=== PATIENT | female | born 1930 | race African-American/Black ===

== ENCOUNTER 2018-06-03 13:36 | Inpatient (IN) | payer MEDICARE ==
[~2018-06-03] VITALS: Ht 165.1 cm; Wt 73.5 kg
[2018-06-03] MEDS ORDERED: MORPHINE SULFATE 4 MG/ML CPJ (NOT FOR IM USE) IV STA ×2 (14:33→18:03)
[2018-06-03] MEDS ORDERED: ONDANSETRON HCL 4MG/2ML INJ IV STA (14:33)
[2018-06-03 15:29] LABS: CLARITY URINE CLEAR (CLEAR); COLOR URINE YELLOW (YELLOW); KETONES URINE NEGATIVE (NEGATIVE); LEUKOCYTE ESTERASE URINE 1+ (NEGATIVE); NITRITE URINE NEGATIVE (NEGATIVE); OCCULT BLOOD URINE NEGATIVE (NEGATIVE); PROTEIN URINE NEGATIVE (NEGATIVE); SPECIFIC GRAVITY URINE 1.022 (1.005-1.030); UROBILINOGEN URINE 0.2 E.U./dL (0.2-1.0)
[2018-06-03 15:33] LABS: BASOPHILS % 0.5 % (0.0-2.0); EOSINOPHILS % 0.1 % (0.0-5.0); HEMATOCRIT. 43.3 % (36.0-48.0); HEMOGLOBIN. 13.8 g/dL (12.0-16.0); LYMPHOCYTES % 10.2 % (20.0-50.0); MEAN CORPUSCULAR HEMOGLOBIN 27.1 pg (28.0-32.0); MEAN CORPUSCULAR VOLUME 84.7 fL (81.0-99.0); MEAN PLATELET VOLUME 10.1 fl (7.4-10.4); MONOCYTES % 6.9 % (2.0-8.0); NEUTROPHILS % 82.3 % (40.0-76.0); PLATELET 236 x1000/uL (130-400); RED BLOOD CELL COUNT 5.11 mill/uL (4.2-5.4); RED CELL DISTRIBUTION WIDTH 17.3 % (11.6-14.6)
[2018-06-03 15:35] LABS: INR 1.1; PROTHROMBIN TIME 10.7 sec (9.1-11.1)
[2018-06-03 15:36] LABS: CHLORIDE 111 mEq/L (98-107)
[2018-06-03] MEDS ORDERED: IOHEXOL-300 100 ML BOTTLE ONE ×2 (16:28→19:55)
[2018-06-03] MEDS ORDERED: SODIUM CHLORIDE 0.9% 1,000 ML IV SCH (17:00)
[2018-06-03] MEDS ORDERED: CEFTRIAXONE 1 G PREMIX 50 ML IV SCH (17:00)
[2018-06-03] MEDS ORDERED: NA PHOS,M-B/NA PHOS,DI-BA ENEMA 118ML PR PRN (18:45)
[2018-06-03] MEDS ORDERED: CLONIDINE 0.1MG TABLET PO PRN (18:45)
[2018-06-03] MEDS ORDERED: ACETAMINOPHEN 325MG TABLET PO PRN (18:45)
[2018-06-03] MEDS ORDERED: GUAIFENESIN 200MG/10ML SUGAR FREE UDC PO PRN (18:45)
[2018-06-03] MEDS ORDERED: IPRATROPIUM/ALBUTEROL 0.5-3(2.5)MG/3ML NEB INH PRN (18:45)
[2018-06-03] MEDS ORDERED: MAGNESIUM/ALUMINUM HYDROXIDE/SIMETHICONE 30ML UDC PO PRN (18:45)
[2018-06-03] MEDS ORDERED: POTASSIUM CHLORIDE 20MEQ TABLET SR PO NR (18:45)
[2018-06-03] MEDS ORDERED: DOCUSATE SODIUM 100MG CAPSULE PO PRN (18:45)
[2018-06-03] MEDS ORDERED: NITROGLYCERIN 0.4MG TABLET SL SL PRN (18:45)
[2018-06-03] MEDS ORDERED: ZOLPIDEM TARTRATE 5MG TABLET PO PRN (21:00)
[2018-06-04] VITALS (7 sets, daily range): BP systolic 130–156; BP diastolic 55–73
[2018-06-04] MEDS ORDERED: KCL 20MEQ/100ML PREMIX 100 ML IV SCH (01:00)
[2018-06-04] MEDS: MORPHINE SULFATE 4 MG/ML CPJ (NOT FOR IM USE) IV PRN ×4 (02:34→20:15)
[2018-06-04] MEDS ORDERED: LEVOFLOXACIN 500MG PREMIX 100 ML IV SCH (03:00)
[2018-06-04] MEDS ORDERED: METRONIDAZOLE 500 MG PREMIX 100 ML IV SCH ×2 (04:00→04:30)
[2018-06-04] MEDS: METRONIDAZOLE 500 MG PREMIX 100 ML IV SCH ×3 (06:09→22:24)
[2018-06-04] MEDS: ZINC SULFATE 220 MG ( 50 ) CAPSULE PO SCH (08:58)
[2018-06-04] MEDS: PANTOPRAZOLE SODIUM 40 MG/VIAL IV SCH (08:58)
[2018-06-04] MEDS: ENOXAPARIN 40MG/0.4ML SYR SUBCUT SCH (08:59)
[2018-06-04] MEDS: ASCORBIC ACID 500 MG TABLET PO SCH ×2 (08:59→20:48)
[2018-06-04] MEDS: ONDANSETRON HCL 4MG/2ML INJ IV PRN (11:28)
[2018-06-04 11:49] LABS: BASOPHILS % 1.2 % (0.0-2.0); EOSINOPHILS % 2.2 % (0.0-5.0); HEMATOCRIT. 40.6 % (36.0-48.0); LYMPHOCYTES % 14.7 % (20.0-50.0); MEAN CORPUSCULAR HEMOGLOBIN 27.4 pg (28.0-32.0); MEAN CORPUSCULAR VOLUME 85.5 fL (81.0-99.0); MEAN PLATELET VOLUME 10.1 fl (7.4-10.4); MONOCYTES % 9.8 % (2.0-8.0); NEUTROPHILS % 72.1 % (40.0-76.0); PLATELET 129 x1000/uL (130-400); RED BLOOD CELL COUNT 4.75 mill/uL (4.2-5.4); RED CELL DISTRIBUTION WIDTH 17.6 % (11.6-14.6)
[2018-06-04 12:15] LABS: CREATINE KINASE MB FRACTION 2.9 ng/mL (0.5-3.6)
[2018-06-04 12:16] LABS: CHLORIDE 114 mEq/L (98-107)
[2018-06-04 12:18] LABS: CREATINE KINASE 93 IU/L (26-192)
[2018-06-04] MEDS ORDERED: CEFTRIAXONE 1 G PREMIX 50 ML IV SCH (17:00)
[2018-06-04] MEDS: CEFTRIAXONE 1 G PREMIX 50 ML IV SCH (20:48)
[2018-06-05] VITALS: BP 128/59
[2018-06-05] MEDS: MORPHINE SULFATE 4 MG/ML CPJ (NOT FOR IM USE) IV PRN ×6 (01:05→22:47)
[2018-06-05 04:00] VITALS: BP 151/68
[2018-06-05] MEDS: METRONIDAZOLE 500 MG PREMIX 100 ML IV SCH ×3 (05:25→22:48)
[2018-06-05] MEDS: ONDANSETRON HCL 4MG/2ML INJ IV PRN ×2 (05:41→10:22)
[2018-06-05 08:00] VITALS: BP 155/67
[2018-06-05] MEDS: ZINC SULFATE 220 MG ( 50 ) CAPSULE PO SCH (09:23)
[2018-06-05] MEDS: PANTOPRAZOLE SODIUM 40 MG/VIAL IV SCH (09:23)
[2018-06-05] MEDS: ASCORBIC ACID 500 MG TABLET PO SCH ×2 (09:23→20:50)
[2018-06-05] MEDS: ENOXAPARIN 40MG/0.4ML SYR SUBCUT SCH (09:24)
[2018-06-05] MEDS: LEVOFLOXACIN 250MG PREMIX 50 ML IV SCH (09:24)
[2018-06-05 12:00] VITALS: BP 130/61
[2018-06-05] MEDS: SUCRALFATE 1 G/10 ML UDC PO SCH ×3 (12:21→20:50)
[2018-06-05 16:00] VITALS: BP 143/62
[2018-06-05 20:00] VITALS: BP 135/50
[2018-06-05] MEDS: CEFTRIAXONE 1 G PREMIX 50 ML IV SCH (20:57)
[2018-06-06] VITALS: BP 150/68
[2018-06-06 04:00] VITALS: BP 142/62
[2018-06-06] MEDS: METRONIDAZOLE 500 MG PREMIX 100 ML IV SCH ×2 (06:04→13:54)
[2018-06-06] MEDS: SUCRALFATE 1 G/10 ML UDC PO SCH ×4 (06:04→20:46)
[2018-06-06] MEDS: LEVOFLOXACIN 250MG PREMIX 50 ML IV SCH (06:08)
[2018-06-06] MEDS: TRAMADOL 50MG TABLET PO PRN (07:50)
[2018-06-06 07:55] VITALS: BP 139/62
[2018-06-06] MEDS: ZINC SULFATE 220 MG ( 50 ) CAPSULE PO SCH (09:24)
[2018-06-06] MEDS: ENOXAPARIN 40MG/0.4ML SYR SUBCUT SCH (09:25)
[2018-06-06] MEDS: ASCORBIC ACID 500 MG TABLET PO SCH ×2 (09:25→20:46)
[2018-06-06] MEDS: PANTOPRAZOLE SODIUM 40 MG/VIAL IV SCH (09:25)
[2018-06-06] MEDS: ONDANSETRON HCL 4MG/2ML INJ IV PRN (09:29)
[2018-06-06] MEDS: MORPHINE SULFATE 4 MG/ML CPJ (NOT FOR IM USE) IV PRN ×3 (10:15→21:06)
[2018-06-06 12:00] VITALS: BP_SYST 153; BP_SYST 164; BP_DIAS 79; BP_DIAS 84
[2018-06-06 16:00] VITALS: BP 125/68
[2018-06-06 20:00] VITALS: BP 127/54
[2018-06-06] MEDS: CEFTRIAXONE 1 G PREMIX 50 ML IV SCH (20:45)
[2018-06-07] VITALS: BP 138/72
[2018-06-07] MEDS: METRONIDAZOLE 500 MG PREMIX 100 ML IV SCH ×4 (00:20→22:40)
[2018-06-07] MEDS: MORPHINE SULFATE 4 MG/ML CPJ (NOT FOR IM USE) IV PRN ×6 (01:40→22:22)
[2018-06-07 04:00] VITALS: BP 153/75
[2018-06-07] MEDS: LEVOFLOXACIN 250MG PREMIX 50 ML IV SCH (05:52)
[2018-06-07] MEDS: PANTOPRAZOLE 40MG DR TABLET PO SCH (07:04)
[2018-06-07] MEDS: SUCRALFATE 1 G/10 ML UDC PO SCH ×4 (07:04→20:08)
[2018-06-07 08:00] VITALS: BP 150/75
[2018-06-07] MEDS: ASCORBIC ACID 500 MG TABLET PO SCH ×2 (09:00→20:08)
[2018-06-07] MEDS: ZINC SULFATE 220 MG ( 50 ) CAPSULE PO SCH (09:53)
[2018-06-07] MEDS: ENOXAPARIN 40MG/0.4ML SYR SUBCUT SCH (09:54)
[2018-06-07] MEDS: TRAMADOL 50MG TABLET PO PRN (11:16)
[2018-06-07 12:00] VITALS: BP 153/76
[2018-06-07 16:00] VITALS: BP 153/71
[2018-06-07 20:00] VITALS: BP 146/71
[2018-06-07] MEDS: CEFTRIAXONE 1 G PREMIX 50 ML IV SCH (20:28)
[2018-06-08] VITALS: BP 129/69
[2018-06-08] MEDS: MORPHINE SULFATE 4 MG/ML CPJ (NOT FOR IM USE) IV PRN ×5 (02:27→22:39)
[2018-06-08 04:00] VITALS: BP 136/70
[2018-06-08] MEDS: METRONIDAZOLE 500 MG PREMIX 100 ML IV SCH (05:11)
[2018-06-08] MEDS: SUCRALFATE 1 G/10 ML UDC PO SCH ×4 (06:47→20:02)
[2018-06-08] MEDS: PANTOPRAZOLE 40MG DR TABLET PO SCH (06:47)
[2018-06-08] MEDS: LEVOFLOXACIN 250MG PREMIX 50 ML IV SCH (06:47)
[2018-06-08 08:00] VITALS: BP 146/74
[2018-06-08] MEDS: ASCORBIC ACID 500 MG TABLET PO SCH ×2 (08:14→20:02)
[2018-06-08] MEDS: FOLIC ACID 1MG TABLET PO SCH (09:30)
[2018-06-08] MEDS: THIAMINE HCL 100MG TABLET PO SCH ×2 (09:31→20:02)
[2018-06-08] MEDS: ZINC SULFATE 220 MG ( 50 ) CAPSULE PO SCH (09:31)
[2018-06-08] MEDS: ENOXAPARIN 40MG/0.4ML SYR SUBCUT SCH (09:31)
[2018-06-08] MEDS: MULTIVITAMINS,THER W-MINERALS TABLET PO SCH (09:31)
[2018-06-08 12:00] VITALS: BP 145/68
[2018-06-08 12:35] LABS: HEMATOCRIT. 37.6 % (36.0-48.0); HEMOGLOBIN. 12.2 g/dL (12.0-16.0); MEAN CORPUSCULAR HEMOGLOBIN 27.5 pg (28.0-32.0); MEAN CORPUSCULAR VOLUME 84.5 fL (81.0-99.0); MEAN PLATELET VOLUME 9.4 fl (7.4-10.4); PLATELET 159 x1000/uL (130-400); RED BLOOD CELL COUNT 4.44 mill/uL (4.2-5.4); RED CELL DISTRIBUTION WIDTH 17.7 % (11.6-14.6)
[2018-06-08 12:57] LABS: CHLORIDE 107 mEq/L (98-107)
[2018-06-08 13:41] LABS: PLATELET ESTIMATE NORMAL
[2018-06-08] MEDS: METRONIDAZOLE 500MG TABLET PO SCH ×2 (14:03→21:38)
[2018-06-08 16:00] VITALS: BP 134/62
[2018-06-08] MEDS: TRAMADOL 50MG TABLET PO PRN (16:36)
[2018-06-08] MEDS ORDERED: POTASSIUM CHLORIDE 20MEQ/PACKET PO NR (19:00)
[2018-06-08] MEDS ORDERED: ZOLPIDEM TARTRATE 5MG TABLET PO PRN (19:15)
[2018-06-08 20:00] VITALS: BP 131/61
[2018-06-08] MEDS: CEFTRIAXONE 1 G PREMIX 50 ML IV SCH (20:02)
[2018-06-09] VITALS (9 sets, daily range): BP systolic 119–142; BP diastolic 52–67
[2018-06-09] MEDS: TRAMADOL 50MG TABLET PO PRN ×2 (00:37→07:02)
[2018-06-09] MEDS: MORPHINE SULFATE 4 MG/ML CPJ (NOT FOR IM USE) IV PRN ×3 (02:59→15:09)
[2018-06-09] MEDS: ONDANSETRON HCL 4MG/2ML INJ IV PRN (02:59)
[2018-06-09] MEDS: SUCRALFATE 1 G/10 ML UDC PO SCH (06:02)
[2018-06-09] MEDS: METRONIDAZOLE 500MG TABLET PO SCH (06:02)
[2018-06-09] MEDS: PANTOPRAZOLE 40MG DR TABLET PO SCH (06:02)
[2018-06-09] MEDS: ASCORBIC ACID 500 MG TABLET PO SCH (09:00)
[2018-06-09 09:09] LABS: SACCHAROMYCES CEREVISIAE IGG 32.4 Units (0.0-24.9); SACCHAROMYCES CEREVISIAE IGM <20.0 Units (0.0-24.9)
[2018-06-09] MEDS: THIAMINE HCL 100MG TABLET PO SCH (10:45)
[2018-06-09] MEDS: MULTIVITAMINS,THER W-MINERALS TABLET PO SCH (10:45)
[2018-06-09] MEDS: ZINC SULFATE 220 MG ( 50 ) CAPSULE PO SCH (10:45)
[2018-06-09] MEDS: FOLIC ACID 1MG TABLET PO SCH (10:45)
[2018-06-09] MEDS: ENOXAPARIN 40MG/0.4ML SYR SUBCUT SCH (10:46)
[2018-06-09 14:17] LABS: ATYPICAL pANCA <1:20 titer (Neg:<1:20)
[2018-06-09] MEDS ORDERED: CEFTRIAXONE 1,000 MG in DEXTROSE 5% WATER 50 ML IV SCH (21:00)
[2018-06-09] MEDS ORDERED: ATORVASTATIN CALCIUM 10MG TABLET PO SCH (21:00)
== END 2018-06-09 15:30 | DRG 690 ==
LOC: ER 13:49 → SUPCPDRO 18:23 → 5WST 18:29 → EDBEDREQ 18:32 → ENRESERV 06-04 01:05
PROVIDERS: ADMIT Internal Medicine; ATTEND Internal Medicine
DX: N39.0 Urinary tract infection, site not specified (principal); E87.0 Hyperosmolality and hypernatremia; C95.90 Leukemia, unspecified not having achieved remission; E44.0 Moderate protein-calorie malnutrition; K52.9 Noninfective gastroenteritis and colitis, unspecified; E87.6 Hypokalemia; G89.4 Chronic pain syndrome; J43.8 Other emphysema; K86.89 Other specified diseases of pancreas; Z96.659 Presence of unspecified artificial knee joint; K59.00 Constipation, unspecified; I10 Essential (primary) hypertension; Z79.891 Long term (current) use of opiate analgesic
CPT/HCPCS: 36415; 71045; 74177; 80061; 82550; 82553; 83036; 83615; 83880; 84484; 86256; 86671; 93005; 93970; 96365; 96375; 97116; 97162; 97166; 97530; 97535; 99285; C1893; C9113; J0696; J1650; J1956; J2270; J2405; J3480; J3490; J7040; J7060; Q9967

== ENCOUNTER 2019-08-02 15:03 | Inpatient (IN) | payer MEDICARE ==
[~2019-08-02] VITALS: Ht 157.5 cm; Wt 48.1 kg
[2019-08-02] MEDS ORDERED: PIPERACILLIN/TAZ 3.375G PREMIX 50 ML IV ONE (15:45)
[2019-08-02] MEDS ORDERED: VANCOMYCIN 1 G PREMIX 200 ML IV ONE (15:45)
[2019-08-02 16:47] LABS: BASOPHILS % 1.2 % (0.0-2.0); EOSINOPHILS % 0.5 % (0.0-5.0); HEMATOCRIT. 32.2 % (36.0-48.0); HEMOGLOBIN. 10.7 g/dL (12.0-16.0); LYMPHOCYTES % 19.3 % (20.0-50.0); MEAN CORPUSCULAR HEMOGLOBIN 31.2 pg (28.0-32.0); MEAN CORPUSCULAR VOLUME 93.9 fL (81.0-99.0); MEAN PLATELET VOLUME 9.6 fl (7.4-10.4); MONOCYTES % 13.6 % (2.0-8.0); NEUTROPHILS % 65.4 % (40.0-76.0); PLATELET 74 x1000/uL (130-400); RED BLOOD CELL COUNT 3.43 mill/uL (4.2-5.4); RED CELL DISTRIBUTION WIDTH 18.3 % (11.6-14.6)
[2019-08-02 16:53] LABS: CHLORIDE 101 mEq/L (98-107)
[2019-08-02] MEDS ORDERED: MORPHINE SULFATE 4 MG/ML CPJ (NOT FOR IM USE) IV ONE (17:00)
[2019-08-02 17:05] LABS: INR 1.1; PROTHROMBIN TIME 11.6 sec (9.6-11.0)
[2019-08-02] MEDS ORDERED: POTASSIUM CHLORIDE INJ 40 MEQ in DEXT 5% WATER 500 ML IV ONE (17:15)
[2019-08-02] MEDS ORDERED: POTASSIUM CHLORIDE 20MEQ TABLET SR PO ONE (17:15)
[2019-08-02] MEDS: PIPERACILLIN/TAZ 3.375G PREMIX 50 ML IV SCH (18:30)
[2019-08-02] MEDS ORDERED: MAGNESIUM/ALUMINUM HYDROXIDE/SIMETHICONE 30ML UDC PO PRN (18:30)
[2019-08-02] MEDS ORDERED: GUAIFENESIN 200MG/10ML SUGAR FREE UDC PO PRN (18:30)
[2019-08-02] MEDS ORDERED: ZOLPIDEM TARTRATE 5MG TABLET PO PRN ×2 (18:30→23:30)
[2019-08-02] MEDS ORDERED: IPRATROPIUM/ALBUTEROL 0.5-3(2.5)MG/3ML NEB ORI PRN (18:30)
[2019-08-02] MEDS ORDERED: DOCUSATE SODIUM 100MG CAPSULE PO PRN (18:30)
[2019-08-02] MEDS ORDERED: ONDANSETRON HCL 4MG/2ML INJ IV PRN (18:30)
[2019-08-02] MEDS ORDERED: NITROGLYCERIN 0.4MG TABLET SL SL PRN (18:30)
[2019-08-02] MEDS ORDERED: ACETAMINOPHEN 325MG TABLET PO PRN (18:30)
[2019-08-02] MEDS ORDERED: ENOXAPARIN 40MG/0.4ML SYR SUBCUT SCH ×2 (18:30)
[2019-08-02 19:26] LABS: TOTAL IRON BINDING CAPACITY 227 ug/dL (250-450)
[2019-08-02 19:29] LABS: DIGOXIN 0.5 ng/mL (0.9-2.0)
[2019-08-02 19:37] LABS: FOLIC ACID (FOLATE) SERUM 11.3 ng/mL (>5.38)
[2019-08-02] MEDS ORDERED: DILTIAZEM HCL 60MG TABLET PO NR (23:45)
[2019-08-02] MEDS ORDERED: FAMOTIDINE 20MG TABLET PO SCH (23:45)
[2019-08-03] MEDS: MORPHINE SULFATE 2 MG/ML CPJ (NOT FOR IM USE) IV PRN ×2 (00:27→20:45)
[2019-08-03] MEDS ORDERED: PIPERACILLIN/TAZ 3.375G PREMIX 50 ML IV SCH ×2 (05:15→14:00)
[2019-08-03] MEDS: PIPERACILLIN/TAZ 3.375G PREMIX 50 ML IV SCH (05:16)
[2019-08-03 08:00] VITALS: BP 134/74
[2019-08-03] MEDS: ASCORBIC ACID 500 MG TABLET PO SCH ×2 (08:05→21:18)
[2019-08-03] MEDS: ZINC SULFATE 220 MG ( 50 ) CAPSULE PO SCH (08:05)
[2019-08-03] MEDS: DILTIAZEM HCL 60MG TABLET PO SCH ×3 (08:05→18:09)
[2019-08-03] MEDS: FAMOTIDINE 20MG TABLET PO SCH ×2 (08:05→21:17)
[2019-08-03] MEDS: TRAMADOL 50MG TABLET PO PRN (08:05)
[2019-08-03 12:00] VITALS: BP 141/48
[2019-08-03] MEDS: PIPERACILLIN/TAZOBACTAM 2.25 G in DEXTROSE 5% WATER 50 ML IV SCH ×2 (12:00→20:52)
[2019-08-03] MEDS ORDERED: VANCOMYCIN 1,000 MG in DEXT 5% WATER 250 ML IV SCH (14:00)
[2019-08-03] MEDS ORDERED: VANCOMYCIN 1 G PREMIX 200 ML IV SCH (14:00)
[2019-08-03 16:00] VITALS: BP 117/53
[2019-08-03] MEDS: ENOXAPARIN 40MG/0.4ML SYR SUBCUT SCH (18:00)
[2019-08-03] MEDS: DIGOXIN 125MCG TABLET PO SCH (18:07)
[2019-08-03 20:00] VITALS: BP 130/55
[2019-08-04] VITALS: BP 135/49
[2019-08-04] MEDS: DILTIAZEM HCL 60MG TABLET PO SCH ×4 (01:21→17:28)
[2019-08-04] MEDS: ACETAMINOPHEN 325MG TABLET PO PRN ×2 (01:22→22:58)
[2019-08-04] MEDS: MORPHINE SULFATE 2 MG/ML CPJ (NOT FOR IM USE) IV PRN ×4 (01:23→13:44)
[2019-08-04] MEDS: PIPERACILLIN/TAZOBACTAM 2.25 G in DEXTROSE 5% WATER 50 ML IV SCH ×5 (01:40→23:37)
[2019-08-04 04:00] VITALS: BP 133/59
[2019-08-04 08:00] VITALS: BP 135/60
[2019-08-04] MEDS: FAMOTIDINE 20MG TABLET PO SCH ×2 (09:00→23:36)
[2019-08-04] MEDS: ZINC SULFATE 220 MG ( 50 ) CAPSULE PO SCH (10:06)
[2019-08-04] MEDS: ASCORBIC ACID 500 MG TABLET PO SCH ×2 (10:06→22:48)
[2019-08-04 12:00] VITALS: BP 118/69
[2019-08-04] MEDS: VANCOMYCIN 750 MG in DEXT 5% WATER 250 ML IV SCH ×2 (13:00→13:30)
[2019-08-04 16:00] VITALS: BP 135/63
[2019-08-04] MEDS: ENOXAPARIN 40MG/0.4ML SYR SUBCUT SCH (17:28)
[2019-08-04] MEDS: DIGOXIN 125MCG TABLET PO SCH (17:28)
[2019-08-04 20:00] VITALS: BP 2/120
[2019-08-05] VITALS: BP 163/86
[2019-08-05] MEDS: DILTIAZEM HCL 60MG TABLET PO SCH ×6 (02:00→23:57)
[2019-08-05 04:00] VITALS: BP 172/85
[2019-08-05] MEDS: CLONIDINE 0.1MG TABLET PO PRN (05:19)
[2019-08-05] MEDS: PIPERACILLIN/TAZOBACTAM 2.25 G in DEXTROSE 5% WATER 50 ML IV SCH ×4 (05:20→23:57)
[2019-08-05] MEDS: TRAMADOL 50MG TABLET PO PRN ×3 (06:19→23:57)
[2019-08-05] MEDS: VANCOMYCIN 750 MG in DEXT 5% WATER 250 ML IV SCH (06:23)
[2019-08-05 08:00] VITALS: BP 117/63
[2019-08-05] MEDS: FAMOTIDINE 20MG TABLET PO SCH ×2 (10:34→21:00)
[2019-08-05] MEDS: ASCORBIC ACID 500 MG TABLET PO SCH ×2 (10:34→21:56)
[2019-08-05] MEDS: MORPHINE SULFATE 2 MG/ML CPJ (NOT FOR IM USE) IV PRN ×2 (10:34→15:28)
[2019-08-05] MEDS: ZINC SULFATE 220 MG ( 50 ) CAPSULE PO SCH (10:34)
[2019-08-05 12:00] VITALS: BP 127/62
[2019-08-05 16:00] VITALS: BP 119/64
[2019-08-05] MEDS: DIGOXIN 125MCG TABLET PO SCH (17:42)
[2019-08-05] MEDS: ENOXAPARIN 40MG/0.4ML SYR SUBCUT SCH (17:43)
[2019-08-05 20:00] VITALS: BP 122/58
[2019-08-05] MEDS: ACETAMINOPHEN 325MG TABLET PO PRN (22:12)
[2019-08-06] VITALS: BP 118/54
[2019-08-06] MEDS: VANCOMYCIN 750 MG PREMIX 150 ML IV SCH ×2 (01:00→18:24)
[2019-08-06 04:00] VITALS: BP 120/84
[2019-08-06] MEDS: DILTIAZEM HCL 60MG TABLET PO SCH ×3 (05:58→17:41)
[2019-08-06] MEDS: PIPERACILLIN/TAZOBACTAM 2.25 G in DEXTROSE 5% WATER 50 ML IV SCH ×3 (05:58→17:09)
[2019-08-06 08:00] VITALS: BP 150/55
[2019-08-06] MEDS: TRAMADOL 50MG TABLET PO PRN ×3 (08:55→22:00)
[2019-08-06] MEDS: ASCORBIC ACID 500 MG TABLET PO SCH ×2 (08:55→22:22)
[2019-08-06] MEDS: ZINC SULFATE 220 MG ( 50 ) CAPSULE PO SCH (08:56)
[2019-08-06] MEDS: FAMOTIDINE 20MG TABLET PO SCH ×2 (08:57→22:00)
[2019-08-06 09:49] LABS: BASOPHILS % 0.6 % (0.0-2.0); EOSINOPHILS % 0.5 % (0.0-5.0); HEMATOCRIT. 30.8 % (36.0-48.0); HEMOGLOBIN. 10.1 g/dL (12.0-16.0); LYMPHOCYTES % 16.9 % (20.0-50.0); MEAN CORPUSCULAR HEMOGLOBIN 31.2 pg (28.0-32.0); MEAN CORPUSCULAR VOLUME 95.1 fL (81.0-99.0); MEAN PLATELET VOLUME 10.3 fl (7.4-10.4); MONOCYTES % 11.5 % (2.0-8.0); NEUTROPHILS % 70.5 % (40.0-76.0); PLATELET 77 x1000/uL (130-400); RED BLOOD CELL COUNT 3.24 mill/uL (4.2-5.4)
[2019-08-06 10:07] LABS: CHLORIDE 101 mEq/L (98-107)
[2019-08-06 12:00] VITALS: BP 143/65
[2019-08-06] MEDS ORDERED: POTASSIUM CHLORIDE 20MEQ/PACKET PO NR ×2 (12:25→16:00)
[2019-08-06] MEDS ORDERED: POTASSIUM CHLORIDE 20MEQ TABLET SR PO NR (16:08)
[2019-08-06 17:36] VITALS: BP 116/47
[2019-08-06] MEDS: DIGOXIN 125MCG TABLET PO SCH (17:41)
[2019-08-06 20:00] VITALS: BP 160/57
[2019-08-07] VITALS (7 sets, daily range): BP systolic 103–172; BP diastolic 50–86
[2019-08-07] MEDS: DILTIAZEM HCL 60MG TABLET PO SCH ×4 (01:34→17:07)
[2019-08-07] MEDS: PIPERACILLIN/TAZOBACTAM 2.25 G in DEXTROSE 5% WATER 50 ML IV SCH ×6 (05:25→17:17)
[2019-08-07] MEDS: TRAMADOL 50MG TABLET PO PRN ×2 (05:26→13:37)
[2019-08-07] MEDS: ASCORBIC ACID 500 MG TABLET PO SCH (09:41)
[2019-08-07] MEDS: FAMOTIDINE 20MG TABLET PO SCH ×2 (09:41→20:49)
[2019-08-07] MEDS: ZINC SULFATE 220 MG ( 50 ) CAPSULE PO SCH (09:41)
[2019-08-07] MEDS: CLONIDINE 0.1MG TABLET PO PRN (09:58)
[2019-08-07] MEDS: ACETAMINOPHEN 325MG TABLET PO PRN ×3 (09:58→20:49)
[2019-08-07] MEDS: VANCOMYCIN 750 MG PREMIX 150 ML IV SCH (13:00)
[2019-08-07] MEDS: DIGOXIN 125MCG TABLET PO SCH (17:07)
[2019-08-08] VITALS: BP 121/75
[2019-08-08] MEDS: PIPERACILLIN/TAZOBACTAM 2.25 G in DEXTROSE 5% WATER 50 ML IV SCH ×2 (01:55→05:25)
[2019-08-08] MEDS: DILTIAZEM HCL 60MG TABLET PO SCH ×4 (01:55→17:19)
[2019-08-08 04:00] VITALS: BP 144/90
[2019-08-08] MEDS ORDERED: TRAMADOL 50MG TABLET PO PRN (04:00)
[2019-08-08 08:00] VITALS: BP 151/48
[2019-08-08] MEDS: FAMOTIDINE 20MG TABLET PO SCH ×2 (08:37→20:38)
[2019-08-08] MEDS: ACETAMINOPHEN 325MG TABLET PO PRN ×2 (08:39→15:52)
[2019-08-08 12:00] VITALS: BP 118/67
[2019-08-08 16:00] VITALS: BP 138/53
[2019-08-08] MEDS: DIGOXIN 125MCG TABLET PO SCH (17:18)
[2019-08-08] MEDS: TRAMADOL 50MG TABLET PO PRN (17:19)
[2019-08-08 20:00] VITALS: BP 138/57
[2019-08-08] MEDS: METRONIDAZOLE 500MG TABLET PO SCH (20:39)
[2019-08-09] VITALS (7 sets, daily range): BP systolic 124–154; BP diastolic 52–77
[2019-08-09] MEDS: DILTIAZEM HCL 60MG TABLET PO SCH ×4 (00:34→18:08)
[2019-08-09] MEDS: TRAMADOL 50MG TABLET PO PRN ×3 (00:46→18:21)
[2019-08-09] MEDS: METRONIDAZOLE 500MG TABLET PO SCH ×2 (09:23→20:19)
[2019-08-09] MEDS: FAMOTIDINE 20MG TABLET PO SCH ×2 (09:24→20:19)
[2019-08-09] MEDS ORDERED: HEPARIN SODIUM 1,000 UNIT/1ML VIAL IV ONE (09:39)
[2019-08-09] MEDS ORDERED: IPRATROPIUM/ALBUTEROL 0.5-3(2.5)MG/3ML NEB HHN PRN (12:30)
[2019-08-09] MEDS ORDERED: IPRATROPIUM/ALBUTEROL 0.5-3(2.5)MG/3ML NEB HHN NR (12:30)
[2019-08-09] MEDS ORDERED: MIDAZOLAM HCL 2 MG/2 ML VIAL ONE (12:54)
[2019-08-09] MEDS ORDERED: FENTANYL CITRATE/PF 50MCG/ML 2ML VIAL ONE (12:55)
[2019-08-09] MEDS ORDERED: LIDOCAINE HCL 1% 20ML VIAL (Pyxis) INJ ONE (12:56)
[2019-08-09] MEDS ORDERED: IOHEXOL-300 100 ML BOTTLE ONE ×2 (12:57→13:18)
[2019-08-09] MEDS ORDERED: HYDROMORPHONE HCL/PF 2MG/ML (OR) ONE (14:09)
[2019-08-09] MEDS: CLOPIDOGREL 75MG TABLET PO SCH (16:40)
[2019-08-09] MEDS: DIGOXIN 125MCG TABLET PO SCH (18:07)
[2019-08-10] VITALS: BP 130/50
[2019-08-10] MEDS: DILTIAZEM HCL 60MG TABLET PO SCH ×4 (01:26→18:01)
[2019-08-10 04:00] VITALS: BP 99/55
[2019-08-10] MEDS: TRAMADOL 50MG TABLET PO PRN (05:21)
[2019-08-10 08:00] VITALS: BP 130/51
[2019-08-10] MEDS: CLOPIDOGREL 75MG TABLET PO SCH (09:59)
[2019-08-10] MEDS: FAMOTIDINE 20MG TABLET PO SCH ×2 (09:59→22:31)
[2019-08-10] MEDS: METRONIDAZOLE 500MG TABLET PO SCH ×2 (09:59→22:31)
[2019-08-10] MEDS: MORPHINE SULFATE 2 MG/ML CPJ (NOT FOR IM USE) IV PRN ×3 (10:45→20:26)
[2019-08-10 12:00] VITALS: BP 114/45
[2019-08-10 16:00] VITALS: BP 120/52
[2019-08-10] MEDS: DIGOXIN 125MCG TABLET PO SCH (18:00)
[2019-08-10 20:00] VITALS: BP 117/62
[2019-08-11] VITALS: BP 125/50
[2019-08-11] MEDS: DILTIAZEM HCL 60MG TABLET PO SCH ×4 (00:40→17:37)
[2019-08-11] MEDS: MORPHINE SULFATE 2 MG/ML CPJ (NOT FOR IM USE) IV PRN ×5 (00:41→22:27)
[2019-08-11 04:00] VITALS: BP 137/53
[2019-08-11 08:00] VITALS: BP 147/53
[2019-08-11] MEDS: FAMOTIDINE 20MG TABLET PO SCH (08:54)
[2019-08-11] MEDS: METRONIDAZOLE 500MG TABLET PO SCH ×2 (08:54→22:26)
[2019-08-11] MEDS: CLOPIDOGREL 75MG TABLET PO SCH (08:54)
[2019-08-11 10:26] LABS: BASOPHILS % 0.6 % (0.0-2.0); EOSINOPHILS % 0.4 % (0.0-5.0); HEMATOCRIT. 28.7 % (36.0-48.0); HEMOGLOBIN. 9.5 g/dL (12.0-16.0); LYMPHOCYTES % 18.3 % (20.0-50.0); MEAN CORPUSCULAR HEMOGLOBIN 32.3 pg (28.0-32.0); MEAN CORPUSCULAR VOLUME 97.7 fL (81.0-99.0); MEAN PLATELET VOLUME 10.2 fl (7.4-10.4); MONOCYTES % 9.5 % (2.0-8.0); NEUTROPHILS % 71.2 % (40.0-76.0); PLATELET 101 x1000/uL (130-400); RED BLOOD CELL COUNT 2.94 mill/uL (4.2-5.4); RED CELL DISTRIBUTION WIDTH 17.7 % (11.6-14.6)
[2019-08-11 10:33] LABS: CHLORIDE 103 mEq/L (98-107)
[2019-08-11 12:00] VITALS: BP 139/50
[2019-08-11] MEDS: POTASSIUM CHLORIDE 10MEQ TABLET SR PO SCH ×2 (12:40→13:52)
[2019-08-11] MEDS ORDERED: POTASSIUM CHLORIDE INJ 40 MEQ in DEXT 5% WATER 250 ML IV ONE (13:00)
[2019-08-11 16:00] VITALS: BP 132/55
[2019-08-11] MEDS: DIGOXIN 125MCG TABLET PO SCH (17:36)
[2019-08-11 20:00] VITALS: BP 123/42
[2019-08-11] MEDS: CEFTRIAXONE 1 G PREMIX 50 ML IV SCH (22:35)
[2019-08-12] VITALS: BP 112/40
[2019-08-12] MEDS: DILTIAZEM HCL 60MG TABLET PO SCH ×4 (00:09→17:40)
[2019-08-12] MEDS: TRAMADOL 50MG TABLET PO PRN (00:10)
[2019-08-12 04:00] VITALS: BP 143/58
[2019-08-12 08:00] VITALS: BP 146/56
[2019-08-12] MEDS ORDERED: POTASSIUM CHLORIDE 20MEQ TABLET SR PO SCH ×2 (09:00→17:00)
[2019-08-12] MEDS: METRONIDAZOLE 500MG TABLET PO SCH ×2 (09:05→20:44)
[2019-08-12] MEDS: CLOPIDOGREL 75MG TABLET PO SCH (09:05)
[2019-08-12] MEDS: ENOXAPARIN 30MG/0.3ML SYR SUBCUT SCH (09:06)
[2019-08-12] MEDS: FAMOTIDINE 20MG TABLET PO SCH (09:06)
[2019-08-12] MEDS: MORPHINE SULFATE 2 MG/ML CPJ (NOT FOR IM USE) IV PRN ×3 (09:07→21:54)
[2019-08-12] MEDS ORDERED: POTASSIUM CHLORIDE INJ 80 MEQ in DEXT 5% WATER 500 ML IV SCH (11:00)
[2019-08-12 12:00] VITALS: BP 130/47
[2019-08-12] MEDS: ACETAMINOPHEN 325MG TABLET PO PRN (12:29)
[2019-08-12] MEDS: CEFTRIAXONE 1 G PREMIX 50 ML IV SCH (15:53)
[2019-08-12 16:00] VITALS: BP 103/37
[2019-08-12 16:28] LABS: CHLORIDE 110 mEq/L (98-107)
[2019-08-12] MEDS ORDERED: MAGNESIUM 2 G PREMIX 50 ML IV SCH (16:30)
[2019-08-12 16:35] LABS: PHOSPHORUS 2.2 mg/dL (2.5-4.9)
[2019-08-12] MEDS: DIGOXIN 125MCG TABLET PO SCH (17:38)
[2019-08-12 20:00] VITALS: BP 128/51
[2019-08-12] MEDS: IPRATROPIUM/ALBUTEROL 0.5-3(2.5)MG/3ML NEB HHN SCH (21:33)
[2019-08-13] VITALS (8 sets, daily range): BP systolic 121–175; BP diastolic 54–70
[2019-08-13] MEDS: DILTIAZEM HCL 60MG TABLET PO SCH ×4 (00:37→17:20)
[2019-08-13] MEDS: TRAMADOL 50MG TABLET PO PRN (00:38)
[2019-08-13] MEDS ORDERED: ZINC220T4 MT (05:02)
[2019-08-13] MEDS ORDERED: TOPUD MT (05:02)
[2019-08-13] MEDS ORDERED: DILT60TA35 PO (05:02)
[2019-08-13] MEDS ORDERED: NITR0.4T49 SL (05:02)
[2019-08-13] MEDS ORDERED: IPRA3AMP9 HHN (05:02)
[2019-08-13] MEDS ORDERED: DIGO125T80 PO (05:02)
[2019-08-13] MEDS ORDERED: ASCO-339 MT (05:02)
[2019-08-13] MEDS ORDERED: CALC-1098 MT (05:02)
[2019-08-13] MEDS ORDERED: FAMO20TA8 PO (05:02)
[2019-08-13] MEDS ORDERED: DEXTL MT (05:02)
[2019-08-13] MEDS ORDERED: TRAM50TA3 MT (05:02)
[2019-08-13] MEDS ORDERED: MULT-1146 MT (05:02)
[2019-08-13] MEDS ORDERED: BISA10SU62 RC (05:02)
[2019-08-13] MEDS ORDERED: ONDA4TAB5 MT (05:02)
[2019-08-13] MEDS ORDERED: MOM MT (05:02)
[2019-08-13] MEDS ORDERED: CLON0.1T PO (05:02)
[2019-08-13] MEDS: MORPHINE SULFATE 2 MG/ML CPJ (NOT FOR IM USE) IV PRN (05:14)
[2019-08-13 06:29] LABS: BASOPHILS % 0.6 % (0.0-2.0); EOSINOPHILS % 0.2 % (0.0-5.0); HEMATOCRIT. 26.5 % (36.0-48.0); HEMOGLOBIN. 8.7 g/dL (12.0-16.0); LYMPHOCYTES % 21.9 % (20.0-50.0); MEAN CORPUSCULAR HEMOGLOBIN 32.6 pg (28.0-32.0); MEAN CORPUSCULAR VOLUME 99.6 fL (81.0-99.0); MEAN PLATELET VOLUME 10.2 fl (7.4-10.4); NEUTROPHILS % 65.3 % (40.0-76.0); PLATELET 108 x1000/uL (130-400); RED BLOOD CELL COUNT 2.67 mill/uL (4.2-5.4); RED CELL DISTRIBUTION WIDTH 17.9 % (11.6-14.6)
[2019-08-13 06:54] LABS: CHLORIDE 111 mEq/L (98-107)
[2019-08-13] MEDS ORDERED: SODIUM POLYSTYRENE SULFONATE 15 G/60 ML BOT PO SCH (09:00)
[2019-08-13] MEDS: METRONIDAZOLE 500MG TABLET PO SCH (09:21)
[2019-08-13] MEDS: ENOXAPARIN 30MG/0.3ML SYR SUBCUT SCH (09:21)
[2019-08-13] MEDS: FAMOTIDINE 20MG TABLET PO SCH (09:21)
[2019-08-13] MEDS: CLOPIDOGREL 75MG TABLET PO SCH (09:21)
[2019-08-13] MEDS: IPRATROPIUM/ALBUTEROL 0.5-3(2.5)MG/3ML NEB HHN SCH ×2 (09:40→14:44)
[2019-08-13] MEDS: CEFTRIAXONE 1 G PREMIX 50 ML IV SCH (15:33)
[2019-08-13] MEDS: CLONIDINE 0.1MG TABLET PO PRN (17:46)
[2019-08-13] MEDS: DIGOXIN 125MCG TABLET PO SCH (18:54)
[2019-08-13] MEDS: ACETAMINOPHEN 325MG TABLET PO PRN (18:54)
== END 2019-08-13 22:00 | DRG 270 ==
LOC: ER 15:03 → EDBEDREQ 18:18 → 5WST 18:20 → CANRESERV 20:36 → ENRESERV 20:36 → EDBEDREQSVC 21:31 → ENRESERV 08-03 04:00 → 7EST 08-03 09:11 → 6EST 08-07 14:18 → 6WST 08-09 22:24
PROVIDERS: ADMIT Internal Medicine; ATTEND Internal Medicine
PROC: B41D1ZZ Fluoroscopy of Aorta and Bilateral Lower Extremity Arteries using Low Osmolar Contrast (ICD-10-PCS; principal; 2019-08-09)
PROC: 04CL3ZZ Extirpation of Matter from Left Femoral Artery, Percutaneous Approach (ICD-10-PCS; 2019-08-09)
PROC: 04CN3ZZ Extirpation of Matter from Left Popliteal Artery, Percutaneous Approach (ICD-10-PCS; 2019-08-09)
PROC: 04CQ3ZZ Extirpation of Matter from Left Anterior Tibial Artery, Percutaneous Approach (ICD-10-PCS; 2019-08-09)
PROC: 047Q3ZZ Dilation of Left Anterior Tibial Artery, Percutaneous Approach (ICD-10-PCS; 2019-08-09)
PROC: 047N3ZZ Dilation of Left Popliteal Artery, Percutaneous Approach (ICD-10-PCS; 2019-08-09)
PROC: 047L3ZZ Dilation of Left Femoral Artery, Percutaneous Approach (ICD-10-PCS; 2019-08-09)
DX: T82.858A Stenosis of other vascular prosthetic devices, implants and grafts, initial encounter (principal); A41.9 Sepsis, unspecified organism; E43 Unspecified severe protein-calorie malnutrition; G92 Toxic encephalopathy; J96.00 Acute respiratory failure, unspecified whether with hypoxia or hypercapnia; I70.262 Atherosclerosis of native arteries of extremities with gangrene, left leg; D61.818 Other pancytopenia; N39.0 Urinary tract infection, site not specified; M86.8X7 Other osteomyelitis, ankle and foot; Z68.1 Body mass index [BMI] 19.9 or less, adult; C91.10 Chronic lymphocytic leukemia of B-cell type not having achieved remission; E87.6 Hypokalemia; I48.0 Paroxysmal atrial fibrillation; J84.89 Other specified interstitial pulmonary diseases; I12.9 Hypertensive chronic kidney disease with stage 1 through stage 4 chronic kidney disease, or unspecified chronic kidney disease; E87.5 Hyperkalemia; K21.9 Gastro-esophageal reflux disease without esophagitis; M19.90 Unspecified osteoarthritis, unspecified site; I70.201 Unspecified atherosclerosis of native arteries of extremities, right leg; N18.9 Chronic kidney disease, unspecified; Y83.2 Surgical operation with anastomosis, bypass or graft as the cause of abnormal reaction of the patient, or of later complication, without mention of misadventure at the time of the procedure; Z20.828 Contact with and (suspected) exposure to other viral communicable diseases; Z96.651 Presence of right artificial knee joint; D63.8 Anemia in other chronic diseases classified elsewhere; Z86.718 Personal history of other venous thrombosis and embolism; Z95.828 Presence of other vascular implants and grafts; Z90.710 Acquired absence of both cervix and uterus; Z87.891 Personal history of nicotine dependence; Y92.89 Other specified places as the place of occurrence of the external cause
CPT/HCPCS: 36415; 37225; 71045; 73630; 75710; 80048; 80053; 80061; 80162; 82270; 82607; 82746; 83036; 83540; 83550; 83735; 84100; 85025; 85347; 87635; 93005; 93923; 94640; 99285; C1725; C1760; C1769; C1885; C1887; C1893; C1894; J0696; J1170; J1644; J1650; J2250; J2270; J2543; J3010; J3370; J3475; J3480; J3490; J7060; Q9967